=== PATIENT | female | born 1940 | race Caucasian/White ===

== ENCOUNTER 2017-12-14 15:01 | Inpatient (IN) | payer OTHER ==
[~2017-12-14] VITALS: Ht 167.6 cm; Wt 61.2 kg
[~2017-12-14 15:01] MED LIST: COZAAR 25 MG TA25 M1 PO; MOTION RELIEF25 MG PO
[2017-12-14 15:08] VITALS: BP 146/89
[2017-12-14 15:28] LABS: ABSOLUTE EOSINOPHILS 0.1 thou/uL (0.0-0.7); ABSOLUTE LYMPHOCYTES 1.5 thou/uL (0.8-5.3); ABSOLUTE MONOCYTES 0.4 thou/uL (0.0-1.2); ABSOLUTE NEUTROPHILS 3.2 thou/uL (1.6-8.1); BASOPHILS 0.6 %; EOSINOPHILS 1.7 %; HEMATOCRIT 39.6 % (37.0-47.0); HEMOGLOBIN 13.4 gm/dL (12.0-15.0); LYMPHOCYTES 28.2 %; MCHC 33.9 g/dL (28.0-37.0); MCV 88.4 fL (80.0-100.0); MONOCYTES 8.2 %; MPV 8.1 fl. (7.2-11.1); NUCLEATED RBCS 0 /100WBC; PLATELET COUNT* 208 thou/uL (150-400); POLYS 61.3 %; RBC 4.48 mil/uL (4.20-5.00); RDW-CV 13.3 % (10.5-14.5); WBC 5.3 thou/uL (4.0-11.0)
[2017-12-14 15:29] LABS: URINE BILIRUBIN NEGATIVE (Negative); URINE BLOOD NEGATIVE (Negative); URINE CLARITY CLEAR; URINE COLOR YELLOW; URINE GLUCOSE-RANDOM NEGATIVE (Negative); URINE KETONES NEGATIVE (Negative); URINE LEUKOCYTES-REFLEX NEGATIVE (Negative); URINE NITRITE-REFLEX NEGATIVE (Negative); URINE PROTEIN NEGATIVE (Negative); URINE SPECIFIC GRAVITY 1.015 (1.005-1.030); URINE UROBILINOGEN 0.2 E.U./dl (0.2-1.0)
[2017-12-14 15:37] LABS: ANION GAP 10 mmol/L (7-16); BUN 25 mg/dL (7-18); CALCIUM 9.1 mg/dL (8.5-10.1); CHLORIDE 106 mmol/L (98-107); CO2 27 mmol/L (21-32); CREATININE 0.9 mg/dL (0.6-1.3); GLUCOSE 148 mg/dL (70-99); POTASSIUM 3.6 mmol/L (3.5-5.1); SODIUM 143 mmol/L (136-145)
[2017-12-14 15:40] LABS: PROTIME 9.9 Seconds (9.20-11.50)
[2017-12-14 15:47] LABS: ALBUMIN 3.8 g/dL (3.4-5.0); ALKALINE PHOSPHATASE 79 U/L (46-116); NT-PRO BRAIN NAT PEPTIDE 137 pg/mL (<300); SGOT 22 U/L (15-37); SGPT 29 U/L (30-65); TOTAL BILIRUBIN 0.5 mg/dL (<0.1-1.0); TOTAL PROTEIN 7.5 g/dL (6.4-8.2); TROPONIN-I LEVEL <0.06 ng/mL (<0.06)
[2017-12-14 17:51] VITALS: BP 129/72
[2017-12-14 18:16] VITALS: BP 134/73
--- NOTE | 2017-12-14 19:07 | NUR ---
PT ARRIVED TO THE FLOOR AT 1800. PT IS A&O X4 CALM AND COOPERATIVE. PT HAS NO C/O PAIN OR N/V. PT VSS ON ROOM AIR. TRACING SB ON THE MONITOR. MEDICATIONS VERIFIED AND DOCUMENTED. NURSING ASSESSMENT COMPLETED. PT RESTING COMFORTABLY IN BED WATCHING TV, NO APPARENT SINGS OF DISTRESS OR DISCOMFORT. PT VERBALIZED UNDERSTANDING OF ADMISSION INSTRUCTIONS. NURSING WILL CONTINUE TO MONITOR.
[2017-12-14 20:25] VITALS: BP 126/65
[2017-12-15] VITALS: BP 102/61
[2017-12-15 04:00] VITALS: BP 115/61
[2017-12-15 04:44] LABS: ALBUMIN 3.1 g/dL (3.4-5.0); CREATININE 0.8 mg/dL (0.6-1.3); MAGNESIUM 2.3 mg/dL (1.8-2.4); POTASSIUM 3.6 mmol/L (3.5-5.1); TOTAL BILIRUBIN 0.6 mg/dL (<0.1-1.0)
[2017-12-15 04:48] LABS: HEMATOCRIT 35.6 % (37.0-47.0); HEMOGLOBIN 12.3 gm/dL (12.0-15.0); MCH 30.2 pg (26.0-34.0); MCHC 34.4 g/dL (28.0-37.0); MCV 87.6 fL (80.0-100.0); MPV 8.7 fl. (7.2-11.1); RBC 4.07 mil/uL (4.20-5.00); RDW-CV 13.2 % (10.5-14.5)
[2017-12-15 04:53] LABS: CALCIUM 8.7 mg/dL (8.5-10.1)
--- NOTE | 2017-12-15 05:06 | NUR ---
ASSUMED CARE OF PT AT 1900. PT IS ALERT AND ORIENTED. VSS. PERRLA. NO COMPLAINTS OF PAIN. NO COMPLAINTS OF NAUSEA AND VOMITING. PT IS IN SINUS RYTHM ON THE TELEMETRY. PT IS RESTING COMFORTABLY IN BED. RESPIRATIONS ARE EVEN AND NONLABORED. WILL CONTINUE TO MONITOR PT.
[2017-12-15 07:45] VITALS: BP 120/62
--- NOTE | 2017-12-15 10:52 | NUR ---
RECEIVED REPORT AND ASSUMED CARE AT 0730. PT DENIES ANY COMPLAINTS OF PAIN. PT DENIES ANY NAUSEA. VSS. CARDIAC MONITORING IN PLACE. PT UP SBA TO BATHROOM, PT ON RA. DISCUSSED PLAN OF CARE WITH PT, VERBALIZED UNDERSTANDING. PT WOULD LIKE TO BE DISCHARGED TODAY. BED IN LOWEST POSTION. CALL LIGHT WITHIN REACH. BED ALARM ON. WILL CONTINUE TO MONITOR FOR REMAINDER OF THE SHIFT.
[2017-12-15 12:00] VITALS: BP 135/71
--- NOTE | 2017-12-15 12:07 | EKG ---
[place] [address] ELECTROCARDIOGRAM REPORT Name: RAJIV CUI Room: [address] IN [facility].#: [id number] Admission: 12/14/17 Attend Phys: Jonathan Johnson, Discharge: Date of : 42 Report #: [id number] THIS REPORT FOR: //name// [facility] ED Test Date: 2017-12-14 Test Time: 15:55:53 Pat Name: RAJIV CUI Department: Room: Gender: Assistant Designer: [place] : 1940 Requested By: Aubrey Parker Order Number: [id number] MD: Kyle Martínez Measurements Intervals [place] Rate: 54 P: 27 VA: 194 QRS: -34 QRSD: 117 T: 29 QT: 480 QTc: 455 Interpretive Statements Sinus rhythm Nonspecific intraventricular conduction delay Consider anterior infarct Compared to ECG 12/26/2014 13:38:43 Intraventricular conduction delay now present Myocardial infarct finding now present Left-axis deviation no longer present Electronically Signed On 12-15-2017 12:06:45 CDT by Kyle Martínez [email or web address] <ELECTRONICALLY SIGNED> By: Dylan Martínez MD, [facility] 12/15/17 1206 1555 1555 Dylan Martínez MD, [facility] /EPI
[2017-12-15] MEDS ORDERED: ANTIVERT25 MG PO (15:39)
[2017-12-15 15:40] VITALS: BP 135/71
--- NOTE | 2017-12-15 16:24 | NUR ---
DISCHARGE ORDERS PLACE ON THIS SHIFT. PAPERWORK COMPLETED BY NURSING. VSS. IV AND CARDIAC MONITORING DISCONTINUED. PT DENIES ANY COMPLAINTS OF PAIN. HOURLY ROUNDING COMPLETED, ALL NEEDS MET. DISCUSSED DISCHARGE ORDERS WITH PT, ALL QUESTIONS AND CONCERNS ADDRESSED AT THIS TIME.PT BELONGINGS GATHERED AND RETURNED TO PT. PT VERBALIZED UNDERSTANDING. PT WAS ESCORTED TO PERSONAL CAR AND WAS TRANSPORTED HOME BY HER DAUGHTER.
== END 2017-12-15 15:50 | disposition home or self-care (01) | DRG 392 ==
LOC: M.ERS 15:01 → M.TBA-ER 17:10 → M.2W 18:05
PROVIDERS: Family Medicine; ADMIT Family Medicine
DX: A08.4 Viral intestinal infection, unspecified (principal); I10 Essential (primary) hypertension; R73.9 Hyperglycemia, unspecified; R91.1 Solitary pulmonary nodule; Z79.899 Other long term (current) drug therapy